=== PATIENT | female | born 1995 | race African-American/Black ===

== ENCOUNTER 2017-06-22 07:39 | Emergency (ER) | payer MEDICAID ==
[~2017-06-22] VITALS: Ht 172.7 cm; Wt 145.1 kg
--- NOTE | 2017-06-22 08:00 | NUR ---
A/OX4, C/O SHOULDER PAIN X THURSDAY, AFTER AN . NAD VSS RR EVEN AND UNLABORED. SEEN AND EVALUATED BY DR MAE
[2017-06-22 08:17] LABS: BASOPHILS % (AUTO) 0.4 % (0.0-2.0); EOSINOPHILS # (AUTO) 0.1 /CMM (0.0-0.7); EOSINOPHILS % (AUTO) 0.8 % (0.0-6.0); HEMATOCRIT 38 % (33-45); HEMOGLOBIN 11.8 g/dL (11.5-14.8); LYMPHOCYTES # (AUTO) 2.1 /CMM (0.8-4.8); LYMPHOCYTES % (AUTO) 26.6 % (20.0-44.0); MEAN CORPUSCULAR HEMOGLOBIN 24 PG (26.0-33.0); MEAN CORPUSCULAR HGB CONC 31 g/dl (31.0-36.0); MEAN CORPUSCULAR VOLUME 76 fL (82-100); MONOCYTES # (AUTO) 0.6 /CMM (0.1-1.30); MONOCYTES % (AUTO) 8.1 % (2.0-12.0); NEUTROPHILS % (AUTO) 64.1 % (43.0-81.0); PLATELET COUNT (AUTO) 345 /CMM (150-450); RDW COEFFICIENT OF VARIATION 17.8 (11.5-15.0); RED BLOOD CELL COUNT(AUTO) 5.02 MIL/uL (4.0-5.2); WHITE BLOOD COUNT (AUTO) 7.8 K/uL (4.3-11.0)
[2017-06-22 08:19] LABS: APPEARANCE,URINE SL CLOUDY (CLEAR); BILIRUBIN,URINE 1+ (NEGATIVE); BLOOD, URINE NEGATIVE Ery/uL (NEGATIVE); COLOR,URINE DARK YELLO (YELLOW); KETONES,URINE TRACE (NEGATIVE); LEUKOCYTE ESTERASE ,URINE TRACE (NEGATIVE); NITRITE, URINE NEGATIVE (NEGATIVE); PROTEIN,URINE TRACE mg/dl (NEGATIVE); UGLUCOSE NEGATIVE (NEGATIVE); UROBILINOGEN,URINE 0.2 EU/dL (0.2)
[2017-06-22 08:56] LABS: BACTERIA,URINE Rare /HPF (None Seen); RBC,URINE 0-2 /HPF (0-2); SQUAMOUS EPITHELIAL CELL,UR Few /HPF (None Seen)
[2017-06-22 09:55] VITALS: BP 131/78
--- NOTE | 2017-06-22 09:55 | NUR ---
Patient discharged to home in stable condition. Written and verbal after care instructions given. Patient verbalizes understanding of instruction.
== END 2017-06-22 09:56 | disposition home or self-care (01) ==
LOC: ER 07:44
DX: O03.88 Urinary tract infection following complete or unspecified spontaneous abortion (principal)
CPT/HCPCS: 36415; 76856-TC; 81000-TC; 84702-TC; 85025-TC; A4606; Z7610

== ENCOUNTER 2018-02-08 09:54 | Inpatient (IN) | payer MEDICAID ==
[~2018-02-08] VITALS: Ht 172.7 cm; Wt 165.6 kg
--- NOTE | 2018-02-08 10:01 | NUR ---
PT AMBULATORY TO ER BED 01 C/O R INNER THIGH PAIN [place] AND THINKS SHE WAS BITTEN BY SOMETHING. PT C/O 03/08 PAIN. GOWNED AND PLACED ON MONITOR. AWAITING MD GRANDE.
--- NOTE | 2018-02-08 10:03 | NUR ---
DR MAE AT BEDSIDE FOR EVAL.
--- NOTE | 2018-02-08 10:20 | NUR ---
IV LINE STARTED. UNABLE TO COLLECT BLOOD SPECIMEN. IVHL FLUSHES. NO SIGNS OF INFILTRATION. PROPERTY INSPECTOR AT BEDSIDE FOR BLOOD DRAW.
--- NOTE | 2018-02-08 10:25 | NUR ---
LACE PAPER MACHINE OPERATOR AT BEDSIDE FOR BLOOD DRAW.
[2018-02-08] MEDS ORDERED: VANCOMYCIN 1 GM in IV D5W 250 ML IV ONE (10:30)
[2018-02-08 11:03] LABS: BASOPHILS % (AUTO) 0.3 % (0.0-2.0); EOSINOPHILS % (AUTO) 0.6 % (0.0-6.0); HEMATOCRIT 35 % (33-45); HEMOGLOBIN 11.2 g/dL (11.5-14.8); LYMPHOCYTES # (AUTO) 1.3 /CMM (0.8-4.8); LYMPHOCYTES % (AUTO) 8.9 % (20.0-44.0); MEAN CORPUSCULAR HEMOGLOBIN 24 PG (26.0-33.0); MEAN CORPUSCULAR HGB CONC 32 g/dl (31.0-36.0); MEAN CORPUSCULAR VOLUME 75 fL (82-100); MONOCYTES # (AUTO) 0.9 /CMM (0.1-1.30); NEUTROPHILS # (AUTO) 12.8 /CMM (1.8-8.9); NEUTROPHILS % (AUTO) 84.2 % (43.0-81.0); PLATELET COUNT (AUTO) 347 /CMM (150-450); RDW COEFFICIENT OF VARIATION 15.6 (11.5-15.0); RED BLOOD CELL COUNT(AUTO) 4.67 MIL/uL (4.0-5.2); WHITE BLOOD COUNT (AUTO) 15.1 K/uL (4.3-11.0)
[2018-02-08 11:10] LABS: BILIRUBIN,URINE SMALL (NEGATIVE); BLOOD, URINE Trace-intact Ery/uL (NEGATIVE); COLOR,URINE Yellow (YELLOW); KETONES,URINE Trace (NEGATIVE); LEUKOCYTE ESTERASE ,URINE Negative (NEGATIVE); NITRITE, URINE Positive (NEGATIVE); PH,URINE 8.5 (5.0-8.0); PROTEIN,URINE 100 mg/dl (NEGATIVE); UGLUCOSE Negative (NEGATIVE)
[2018-02-08 11:11] LABS: APPEARANCE,URINE SLIGHTLY HAZY (CLEAR)
[2018-02-08 11:15] LABS: CALCIUM, SERUM 9.1 mg/dL (8.5-10.1); CARBON DIOXIDE 31 mmol/L (21-32); CHLORIDE 102 mmol/L (98-107); CREATININE 0.6 mg/dL (0.6-1.3); GLUCOSE 113 mg/dL (74-106); POTASSIUM 3.8 mmol/L (3.5-5.1); SODIUM SERUM 138 mmol/L (136-145); UREA NITROGEN, BLOOD 14 mg/dL (7-18)
[2018-02-08 11:16] LABS: INR 1.12 (0.85-1.15)
[2018-02-08 11:17] LABS: BACTERIA,URINE Moderate /HPF (None Seen); SQUAMOUS EPITHELIAL CELL,UR Many /HPF (None Seen)
[2018-02-08 11:24] LABS: ALANINE AMINOTRANSFERASE 19 U/L (12-78); ALBUMIN 3.1 g/dL (3.4-5.0); ALKALINE PHOSPHATASE 103 U/L (46-116); ASPARTATE AMINOTRANSFERASE 14 U/L (15-37); BILIRUBIN,DIRECT 0.3 mg/dL (0.0-0.2); BILIRUBIN,TOTAL 0.8 mg/dL (0.2-1.0); TOTAL PROTEIN, SERUM 7.6 g/dL (6.4-8.2)
[2018-02-08 11:28] LABS: TROPONIN I < 0.017 ng/mL (0.00-0.056)
[2018-02-08 11:29] LABS: BAND % (MANUAL) 4 % (0.0-5.0); LYMPHOCYTES % (MANUAL) 12 % (16-48); MONOCYTES % (MANUAL) 6 % (0-11.0); NEUTROPHILS % (MANUAL) 78 (42-76)
[2018-02-08] MEDS ORDERED: IOHEXOL-350 100 ML VIAL IV ONE (11:38)
[2018-02-08] MEDS ORDERED: CT SWABBABLE VALVE TRANS SET 1 EA INFUS.SET MC ONE (11:39)
[2018-02-08] MEDS ORDERED: IV NS 0.9% 250 ML IV ONE (11:39)
--- NOTE | 2018-02-08 11:50 | NUR ---
PT TO RADIOLOGY FOR RLE CT SCAN VIA [facility].
--- NOTE | 2018-02-08 13:12 | NUR ---
CALLED NURSING ADMINISTRATIVE ASST FOR BED
--- NOTE | 2018-02-08 13:19 | NUR ---
PT IS ASSIGNED TO MED SURG RM#: [id number], DX: CELLULITIS, ACCEPTING MD: DR HOWELL
--- NOTE | 2018-02-08 13:34 | NUR ---
REPORT GIVEN TO GILSON MYRICK. PT AWAITING TRANSFER TO FLOOR.
--- NOTE | 2018-02-08 13:35 | NUR ---
MS1/RN REPORT FROM ER REPORT RECEIVED LINDENLeela HOROWITZ FOR PT TO BE ADMITTED FOR CELLULITIS OF THE RIGHT THIGH UNDER THE CARE OF DR. HOWELL. AWAITING FOR PT'S ARRIVAL.
[2018-02-08] MEDS ORDERED: MAG HYDROX/AL HYDROX/SIMETH 30 ML UDC PO PRN (14:30)
[2018-02-08] MEDS ORDERED: MAGNESIUM HYDROXIDE 30 ML UDC PO PRN (14:30)
[2018-02-08] MEDS ORDERED: HYDROCODONE/APAP 5/325MG 1 EACH TABLET PO PRN (14:30)
[2018-02-08] MEDS ORDERED: ZOLPIDEM TARTRATE 5 MG TABLET PO PRN (14:30)
[2018-02-08] MEDS ORDERED: Z GUARD REMEDY 2 OZ OINT TP PRN (14:30)
[2018-02-08] MEDS ORDERED: ONDANSETRON HCL/PF 4 MG/2 ML VIAL IVP PRN (14:30)
--- NOTE | 2018-02-08 14:40 | NUR ---
MS1/RN ADMITTED TO VT1 - ROOM 109 PT ARRIVED VIA GURNEY ACCOMPANIED BY TRANSPORT CAROLYNN FROM ER. PT AMBULATED WITH A STEADY GET TO HOSPITAL BED. PT A/OX 4, DENIES ANY PAIN AT THIS TIME BUT HAS DISCOMFORT WHEN WALKING RELATED TO THE APPARENT INSECT BITE ON THE RIGHT THIGH, NOTED WARM AND FIRM TO THE TOUCH, ACCORDING TO PT IS PAINFUL WHEN TOUCHED. IV SITE FLUSHED PATENT WITH NO S/S INFECTION, NO EDEMA NOTED. ADMISSION PROTOCOL TO BE INITIATED, AWAITING FOR ADMITTING ORDERS. PT ORIENTED TO HER SURROUNDINGS. CL WITHIN REACHED AND SAFETY MAINTAINED.
[2018-02-08] MEDS ORDERED: FEE PK DOSING 1 MIN EA MC ONE (14:45)
[2018-02-08] MEDS ORDERED: IV NS 0.9% 250 ML IV PRN (15:00)
[2018-02-08 16:00] VITALS: BP 107/55
[2018-02-08] MEDS: VANCOMYCIN 1 GM in IV D5W 250 ML IV SCH ×2 (16:56→22:33)
[2018-02-08] MEDS: ACETAMINOPHEN 325 MG TABLET PO PRN (17:00)
[2018-02-08] MEDS: CEFTRIAXONE 1 G in IV D5W 50 ML IV SCH (18:20)
--- NOTE | 2018-02-08 19:30 | NUR ---
MS1/RN AM SHIFT END NOTES ALL NEEDS MET, PT NOTED WITH ELEVATED TEMP DURING THE SHIFT, COOLING MEASURES GIVEN, LAST TEMP CHECK 100. PT HAD RECEIVED ANTIBIOTIC MEDICATIONS. PT ENDORSED TO PM NURSE TRO CONTINUE CARE. IV SITE INTACT AND PATENT, WITH NO S/S OF INFECTION. CL WITHIN REACHED AND SAFETY MAINTAINED.
[2018-02-08 20:00] VITALS: BP 105/50
--- NOTE | 2018-02-08 20:00 | NUR ---
MS RN NOTE PT IN BED AWAKE. A/O X 4, NO SOB NO DISTRESS OR DISCOMFORT NOTED. PT IS CONCERNED WITH LOW BP 105/50. REMINDED PT THAT SHE TOOK PAIN MED EARLIER. WILL CONTINUE TO MONITOR HER. SL RT HAND #20 INTACT AND PATENT. SIDE RAILS UP X 2 AND CALL LIGHT WITHIN REACH.
--- NOTE | 2018-02-08 20:05 | NUR ---
MS RN NOTE RT THIGH WITH CELLULITIS, SCANT DRAINAGE NOTED. MEPILEX ON. SKIN IS SLIGHTLY HARD AROUND THE CELLULITIS AREA. PAINFUL TO TOUCH. OTHERWISE PT IS COMFORTABLE.
[2018-02-09] MEDS: ACETAMINOPHEN 325 MG TABLET PO PRN ×2 (03:59→15:47)
[2018-02-09 04:00] VITALS: BP 111/51
--- NOTE | 2018-02-09 06:00 | NUR ---
MS 1 RN NOTE CHANGE NURSE AND NURSE VALDEZ GAVE BED BATH TO THE PT, PER PT'S REQUEST ONLY FEMALE STAFF TO GIVE HER BATH.
[2018-02-09] MEDS: VANCOMYCIN 1 GM in IV D5W 250 ML IV SCH ×2 (06:14→15:44)
[2018-02-09 06:25] LABS: BASOPHILS % (AUTO) 0.2 % (0.0-2.0); EOSINOPHILS % (AUTO) 1.1 % (0.0-6.0); HEMATOCRIT 34 % (33-45); HEMOGLOBIN 10.9 g/dL (11.5-14.8); LYMPHOCYTES # (AUTO) 0.9 /CMM (0.8-4.8); MEAN CORPUSCULAR HEMOGLOBIN 25 PG (26.0-33.0); MEAN CORPUSCULAR HGB CONC 32 g/dl (31.0-36.0); MEAN CORPUSCULAR VOLUME 77 fL (82-100); MONOCYTES # (AUTO) 0.5 /CMM (0.1-1.30); MONOCYTES % (AUTO) 4.3 % (2.0-12.0); NEUTROPHILS # (AUTO) 9.5 /CMM (1.8-8.9); NEUTROPHILS % (AUTO) 86.4 % (43.0-81.0); PLATELET COUNT (AUTO) 279 /CMM (150-450); RDW COEFFICIENT OF VARIATION 16.9 (11.5-15.0); RED BLOOD CELL COUNT(AUTO) 4.36 MIL/uL (4.0-5.2)
[2018-02-09 06:44] LABS: ALBUMIN 2.4 g/dL (3.4-5.0); BILIRUBIN,TOTAL 1.3 mg/dL (0.2-1.0); CALCIUM, SERUM 8.2 mg/dL (8.5-10.1); CREATININE 0.7 mg/dL (0.6-1.3); MAGNESIUM 1.6 mg/dL (1.8-2.4); PHOSPHORUS 3.2 mg/dL (2.5-4.9); POTASSIUM 3.4 mmol/L (3.5-5.1); TOTAL PROTEIN, SERUM 6.8 g/dL (6.4-8.2)
--- NOTE | 2018-02-09 06:44 | NUR ---
MS 1 RN NOTE PT IN BED AWAKE. NO DISTRESS OR DISCOMFORT NOTED. DENIES PAIN. VANCO INFUSING ORDERED NO S/S OF INFILTRATION NOTED. ALL NEEDS ATTENDED. WILL ENDORSE TO DAY SHIFT NURSE FOR CONTINUE TO CARE.
[2018-02-09 08:00] VITALS: BP 110/60
--- NOTE | 2018-02-09 08:00 | NUR ---
MS1/RN AM SHIFT INITIAL NOTES RECEIVED PT ASLEEP IN BED, PT A/O X 4, COMPLAINT OF DISCOMFORT ON RIGHT THIGH WOUND, NOTED WITH MODERATE SEROSANGUINEOUS DISCHARGE, DRESSING INTACT, IV SITE ON TKO, PATENT WITH NO S/S OF INFECTION. UPDATED PT LATEST LAB RESULTS SHE REQUESTED. NO ACUTE CHANGE ON CONDITION. CL WITHIN REACHED AND SAFETY MAINTAINED. ON GOING MONITORING.
[2018-02-09] MEDS ORDERED: POTASSIUM CHLORIDE 20 MEQ TAB.PRT.SR PO SCH (09:30)
[2018-02-09] MEDS: Magnesium 1GM/D5W 100ML PREMIX 100 ML IV SCH ×2 (09:47→11:17)
--- NOTE | 2018-02-09 11:30 | NUR ---
MS1/RN ROUNDS - DR. TOTH UPDATED PT'S CONDITION. PT SEEN & EXAMINED BY DR. TOTH, WOUND EXPRESSED, SPECIMEN ORDERED FOR CULTURE. MONITORING.
[2018-02-09 16:00] VITALS: BP 112/42
--- NOTE | 2018-02-09 17:00 | NUR ---
MS1/RN CHANGE IN CONDITION PT VERBALIZED FEELING OF INCREASED HEART RATE. ASSESSED, HR 134, TEMP 102.4 (PT HAD BEEN GIVEN TYLENOL EARLIER AND O2 SAT ON ROOM AIR 97%, RESPIRATIONS EVEN & UNLABORED. NOTIFIED DR. SANCHEZ OF FINDINGS ABOVE WITH ORDERS GIVEN TO DRAW BLOOD CULTURE X 2, LACTIC ACID AND PROCALCITONIN, NOTED AND CARRIED. ON GOING MONITORING. Addendum: 02/09/18 at 1818 by ETHAN LEIGH RN ADDENDUM: TEMP CHECK 102.6, PT REFUSED COOLING MEASURES LIKE ICE PACKS. CHARGE NURSE MADE AWARE. MONITORING.
[2018-02-09] MEDS: LACTOBACILLUS RHAMNOSUS GG 1 EACH CAP.SPRINK PO SCH (17:06)
[2018-02-09] MEDS: CEFTRIAXONE 1 G in IV D5W 50 ML IV SCH (17:06)
--- NOTE | 2018-02-09 18:24 | NUR ---
MS1/RN CONDITION UPDATE CALLED DR. TOTH, RELAYED LATEST TEMP OF 102.6, PT REFUSED COOLING MEASURE, PT AGREED TO HAVE A FAN. DR. TOTH UPGRADED PT'S ACUITY TO TELEMETRY. LAB RESULTS STILL PENDING.
--- NOTE | 2018-02-09 18:42 | NUR ---
patient lives at home locally with family. She is ambulatory and independent with adl's. She sees her pcp at the local [facility]. Current dc plan is to return home. Addendum: 02/09/18 at 1842 by ОЛЕГ WALSH RN Amended: Links added.
--- NOTE | 2018-02-09 19:14 | NUR ---
TELE1/RN AM SHIFT END NOTES ALL NEEDS MET. STILL AWAITING FOR RESULT OF STAT LABS ORDERED. PT ENDORSED TO PM NURSE TO CONTINUE CARE. ALSO ENDORSED TO RELAY THE RESULTS OF STAT LAB TO DR. TOTH ONCE AVAILABLE. CL WITHIN REACHED AND SAFETY MAINTAINED.
--- NOTE | 2018-02-09 19:31 | NUR ---
TELE 1 RN NOTE PT SITTING UP IN THE CHAIR IN HER ROOM. A/O X 3, NO SOB, NO DISTRESS OR DISCOMFORT NOTED. DENIES PAIN AT THIS TIME. FEVER IS COMING DOWN. NS TKO AT RT HAND # 20 G, INTACT AND PATENT. ON TELE MONITOR ST 126. PT KEPT ON SAYING "I THINK I HAVE SEPSIS AND NO DOCTOR CAME TO CHECK ON HER". SIDE RAILS UP X 2 AND CALL LIGHT WITHIN REACH. CONTINUE TO MONITOR HER.
[2018-02-09 20:00] VITALS: BP 114/63
[2018-02-09] MEDS: VANCOMYCIN 1.25 GM in IV NS 0.9% 500 ML IV SCH (22:35)
[2018-02-10] VITALS: BP 100/55
[2018-02-10] MEDS: ACETAMINOPHEN 325 MG TABLET PO PRN ×2 (03:18→13:38)
--- NOTE | 2018-02-10 03:18 | NUR ---
TELE 1 RN NOTE PT IS RUNNING LOW GRADE FEVER 100.0, TYLENOL 650 MG PO GIVEN.
[2018-02-10 04:00] VITALS: BP 101/53
[2018-02-10] MEDS: VANCOMYCIN 1.25 GM in IV NS 0.9% 500 ML IV SCH ×2 (06:13→15:00)
[2018-02-10 06:34] LABS: BASOPHILS % (AUTO) 0.1 % (0.0-2.0); EOSINOPHILS % (AUTO) 2.2 % (0.0-6.0); HEMATOCRIT 32 % (33-45); HEMOGLOBIN 10.3 g/dL (11.5-14.8); LYMPHOCYTES # (AUTO) 1.4 /CMM (0.8-4.8); LYMPHOCYTES % (AUTO) 9.6 % (20.0-44.0); MEAN CORPUSCULAR HEMOGLOBIN 25 PG (26.0-33.0); MEAN CORPUSCULAR HGB CONC 32 g/dl (31.0-36.0); MEAN CORPUSCULAR VOLUME 78 fL (82-100); MONOCYTES # (AUTO) 0.6 /CMM (0.1-1.30); MONOCYTES % (AUTO) 4.3 % (2.0-12.0); NEUTROPHILS # (AUTO) 11.8 /CMM (1.8-8.9); NEUTROPHILS % (AUTO) 83.8 % (43.0-81.0); PLATELET COUNT (AUTO) 303 /CMM (150-450); RDW COEFFICIENT OF VARIATION 16.9 (11.5-15.0); RED BLOOD CELL COUNT(AUTO) 4.11 MIL/uL (4.0-5.2); WHITE BLOOD COUNT (AUTO) 14.1 K/uL (4.3-11.0)
--- NOTE | 2018-02-10 06:45 | NUR ---
TELE 1 RN NOTE PT IN BED AWAKE. NO DISTRESS OR DISCOMFORT NOTED. DENIES PAIN. VANCO INFUSING WELL, NO S/S OF INFILTRATION NOTED. ALL NEEDS ATTENDED. SIDE RAILS UP X 3 AND CALL LIGHT WITHIN REACH. WILL ENDORSE TO DAY SHIFT NURSE FOR CONTINUE TO CARE.
--- NOTE | 2018-02-10 06:46 | NUR ---
TELE 1 RN NOTE ON TELE MONITOR S T HR 110.
[2018-02-10 06:58] VITALS: BP 101/53
[2018-02-10 07:02] LABS: CALCIUM, SERUM 8.1 mg/dL (8.5-10.1); CREATININE 0.7 mg/dL (0.6-1.3); POTASSIUM 3.2 mmol/L (3.5-5.1)
--- NOTE | 2018-02-10 07:10 | NUR ---
TELE/RN NOTES RECEIVED PT IN BED, ALERT AND VERBALLY RESPONSIVE, AFEBRILE, TOLERATING ROOM AIR WELL, NO C/O SOB. DENIES PAIN AT THIS TIME. ST HR 120 ON TELE MONITOR. WITH ONGOING VANCO IV ATB INFUSING WELL ON RHAND. NO SIGNS OF INFECTION ON IV SITE. HOB ELEVATED. SAFETY MEASURES IN PLACED. CALL LIGHT WITHIN REACH. WILL CONT TO MONITOR
[2018-02-10 08:00] VITALS: BP 122/74
--- NOTE | 2018-02-10 08:06 | NUR ---
WOUND CARE CONSULT: PT PRESENTS WITH INDURATED AREA TO RT THIGH WITH OPEN AREA, PRESENT ON ADMISSION. NO DRAINAGE NOTE AT THIS TIME. RECOMMEND SURGICAL CONSULT. PT INDEPENDENT WITH BED MOBILITY AND IS CONTINENT. WILL SEE PRN. DEFER TO SURGICAL TEAM FOR WOUND TREATMENT PLAN. CURRENT AGUSTINA SCORE IS 21. Addendum: 02/10/18 at 0808 by MIKE RAY WNDNU Amended: Links added.
[2018-02-10] MEDS: LACTOBACILLUS RHAMNOSUS GG 1 EACH CAP.SPRINK PO SCH ×2 (08:46→16:24)
--- NOTE | 2018-02-10 10:30 | NUR ---
RN NOTES SEEN BY RACHAEL REYNA, PER STAFF RADIATION THERAPIST PT IS FOR I&D UNDER ANESTHESIA, ALL QUESTIONS AND CONCERNS WERE ANSWERED BY RACHAEL ALVARADO PER PT, "I'LL THINK ABOUT IT." WILL FOLLOW UP
[2018-02-10] MEDS: POTASSIUM CHLORIDE 20 MEQ TAB.PRT.SR PO SCH ×2 (10:47→11:36)
--- NOTE | 2018-02-10 11:20 | NUR ---
RN NOTES SEEN AND EXAMINED BY DR TOTH, ALL QUESTIONS AND CONCERNS WERE ANSWERED BY
--- NOTE | 2018-02-10 14:25 | NUR ---
RN NOTES CALLED LAB FOR VANCO IV DUE FOR 1500, PER PHARMACIST NEED TO WAIT FOR VANCO LEVEL, WILL FOLLOW UP WITH LAB
--- NOTE | 2018-02-10 14:45 | NUR ---
RN NOTES PENS AND PENCILS REPAIRER AT BEDSIDE FOR VANCO LEVEL
[2018-02-10] MEDS: CEFTRIAXONE 1 G in IV D5W 50 ML IV SCH (15:48)
[2018-02-10 16:00] VITALS: BP 119/59
--- NOTE | 2018-02-10 16:15 | NUR ---
RN NOTES SPOKE WITH AERONAUTICAL TEST ENGINEER,- VANCO LEVEL WILL TAKE AWHILE DUE TO MACHINE ISSUE CALLED LAB AND SPOKE WITH DELANO, PER PHARMACIST, "WE STILL NEED TO WAIT FOR THE VANCO LEVEL AND WE'LL JUST ADJUST."
--- NOTE | 2018-02-10 16:36 | NUR ---
RN NOTES PT TEMP 99.9, FAN ON. STILL REFUSED COOLING MEASURES, WILL CONT TO MONITOR
[2018-02-10] MEDS ORDERED: VANCOMYCIN 1.5 GM in IV D5W 500 ML IV ONE (18:30)
--- NOTE | 2018-02-10 19:28 | NUR ---
RN NOTES PT IN STABLE CONDITION. NO ACUTE DISTRESS NOTED THROUGHOUT SHIFT. SAFETY MEASURES OBSERVED AT ALL TIMES. ALL NEEDS ANTICIPATED. ENDORSED TO PM SHIFT NURSE FOR PATRICIA
[2018-02-10 20:00] VITALS: BP 113/70
--- NOTE | 2018-02-10 20:00 | NUR ---
TELE 1 RN NOTE PT IN BED AWAKE. A/O X 3, NO SOB, NO DISTRESS OR DISCOMFORT NOTED. DENIES PAIN. RT HAND #20 G S/L INTACT AND PATENT. ON TELE MONITOR ST HR 126. SIDE RAILS UP X 2 AND CALL LIGHT WITHIN REACH. VSS. CONTINUE TO MONITOR HER.
[2018-02-11] VITALS: BP 122/70
[2018-02-11] MEDS: VANCOMYCIN 1.5 GM in IV D5W 500 ML IV SCH ×3 (02:25→17:12)
[2018-02-11 05:00] VITALS: BP 127/85
--- NOTE | 2018-02-11 06:41 | NUR ---
TELE 1 RN NOTE PT IN BED AWAKE, WENT TO BATHROOM, NO DISTRESS OR DISCOMFORT NOTED. DENIES PAIN. SL IN RT HAND #20 G INTACT AND PATENT. ON TELE ST HR 130. ALL NEEDS ATTENDED. SIDE RAILS UP X 2 AND CALL LIGHT WITHIN REACH. WILL ENDORSE TO DAY SHIFT NURSE FOR CONTINUE TO CARE.
--- NOTE | 2018-02-11 06:58 | NUR ---
TELE 1 RN NOTE PT NOTED O2 SAT 86% ON RA, O2 4L APPLIED VIA N/C O2 SAT 95%. PT DON'T WANT TO GIVE CONSENT YET FOR DEBRIDMENT PROCEDURE. STATES "I WILL WAIT UNTIL I AM SURE TO DO THIS".
--- NOTE | 2018-02-11 07:15 | NUR ---
VAT HOUSE LABORER INITIAL NOTES RECEIVED REPORT AND PATEINT FROM PM NURSE, PATIENT RESTING IN BED WITH NO ACUTE CHANGES NOTED, ALL SAFETY MEASURES INITIATED, ON TELE MONITOR SINUS TACH 108 HEART RATE, A&O X4 FRENCH SPEAKING, ON 4LITERS NASAL CANULA SAT ABOVE 90%, NPO AT THIS TIME PER I&D SURGERY FOR THIGH POSSIBLY WAITING FOR PATIENT TO CONSENT WITH MD AT BEDSIDE, RT HAND 20G IV SITE SALINE LOCKED, INTACT AND PATENT NO INFILTRATION NOTED., PT STABLE AND WILL CONTINUE TO MONITOR.
[2018-02-11 07:33] LABS: BASOPHILS % (AUTO) 0.2 % (0.0-2.0); HEMATOCRIT 35 % (33-45); LYMPHOCYTES # (AUTO) 1.6 /CMM (0.8-4.8); LYMPHOCYTES % (AUTO) 15.5 % (20.0-44.0); MEAN CORPUSCULAR HEMOGLOBIN 24 PG (26.0-33.0); MEAN CORPUSCULAR HGB CONC 32 g/dl (31.0-36.0); MEAN CORPUSCULAR VOLUME 77 fL (82-100); MONOCYTES # (AUTO) 0.7 /CMM (0.1-1.30); MONOCYTES % (AUTO) 6.2 % (2.0-12.0); NEUTROPHILS # (AUTO) 7.9 /CMM (1.8-8.9); NEUTROPHILS % (AUTO) 75.1 % (43.0-81.0); PLATELET COUNT (AUTO) 385 /CMM (150-450); RDW COEFFICIENT OF VARIATION 17.1 (11.5-15.0); RED BLOOD CELL COUNT(AUTO) 4.52 MIL/uL (4.0-5.2); WHITE BLOOD COUNT (AUTO) 10.6 K/uL (4.3-11.0)
[2018-02-11 07:43] LABS: CALCIUM, SERUM 8.6 mg/dL (8.5-10.1); CREATININE 0.7 mg/dL (0.6-1.3); POTASSIUM 3.5 mmol/L (3.5-5.1)
[2018-02-11 08:00] VITALS: BP 124/84
[2018-02-11] MEDS: LACTOBACILLUS RHAMNOSUS GG 1 EACH CAP.SPRINK PO SCH ×2 (08:09→16:14)
--- NOTE | 2018-02-11 12:12 | NUR ---
SPOT WELDER LINE NOTES PATIENT LEAVING FOR I&D WITH DR MUNIZ, CONSENTS SIGNED AND COMPLETED, VS STABLE, PATIENT STABLE WITH NO ACUTE DISTRESS NOTED, IV SITE INTACT AND PATENT, WILL AWAIT FOR RETURN BACK AND ORDERS FROM MD.
--- NOTE | 2018-02-11 12:58 | NUR ---
ANIMAL PHYSIOLOGY TEACHER NOTES PATIENT IN OPERATING ROOM CALLED AND SPOKE WITH PAU RN AND PT OUT OF SURGERY, STABLE WITH NO PAIN NOTED OR DISTRESS, WILL PROCEED WITH MD ORDERS FOR WOUND TX.
--- NOTE | 2018-02-11 13:15 | NUR ---
JOURNEYMAN MOLDER NOTES PATIENT RETURNED BACK FROM SURGERY, VS T 98.2, RESP 18, BP 99/45, SAT 96% NO SOB OR ACUTE DISTRESS, HR 96, NO PAIN STATED BY PATIENT, DRESSING INTACT WITH NO DRAINAGE NOTED, WILL CONTINUE TO MONITOR.
[2018-02-11 16:00] VITALS: BP 111/67
[2018-02-11] MEDS: CEFTRIAXONE 1 G in IV D5W 50 ML IV SCH (16:14)
--- NOTE | 2018-02-11 18:44 | NUR ---
DISTRICT COURT ADMINISTRATOR NOTES PT RESTING IN BED, WILL CONTINUE TO MONITOR, ALL DUE MEDS GIVEN AND ALL NEEDS MET, IV SITE INFILTRATED WILL NEED NEW IV, NEED TO INSERT NEW IV, WILL ENDORSE TO PM NURSE FOR CONTINUITY OF CARE, PT STABLE AT THIS TIME, ON TELE MONITOR MD ORDERED, BED BATH PROVIDED,WILL CONTINUE CARE.
[2018-02-11 20:00] VITALS: BP 133/61
[2018-02-12] VITALS: BP 128/80
[2018-02-12] MEDS: VANCOMYCIN 1.5 GM in IV D5W 500 ML IV SCH ×3 (01:38→17:36)
[2018-02-12 04:00] VITALS: BP 117/70
--- NOTE | 2018-02-12 07:27 | NUR ---
SERVICE EMPLOYEE OPENING NOTES RECEIVED PATIENT ASLEEP IN BED, EASILY AWAKENS. ON 02 VIA N/C @ 3LPM, BREATHING EVEN AND UNLABORED WITH NO SIGNS OF RESPIRATORY DISTRESS NOTED. ON TELE-MONITORING WITH CURRENT READING OF SR WITH HR OF 82, NO CARDIAC DISTRESS NOTED. IV ACCESS ON LEFT HAND G #22 INTACT AND PATENT. ALL SAFETY MEASURES IN PLACE. BED LOW AND LOCKED POSITION WITH SIDE-RAILS UP X2. CALL LIGHT IN REACH. WILL CONTINUE TO MONITOR PATIENT ACCORDINGLY.
[2018-02-12 08:00] VITALS: BP 105/78
[2018-02-12] MEDS: LACTOBACILLUS RHAMNOSUS GG 1 EACH CAP.SPRINK PO SCH ×2 (08:37→16:50)
--- NOTE | 2018-02-12 09:28 | NUR ---
RN NOTES IV ACCESS O LEFT HAND DISLODGED, NEW IV LINE INSERTED TO DELTA G#22, DATED AND SECURED WITH TAPE. WILL CONTINUE TO MONITOR.
[2018-02-12 10:01] LABS: BASOPHILS % (AUTO) 0.1 % (0.0-2.0); EOSINOPHILS % (AUTO) 2.7 % (0.0-6.0); HEMATOCRIT 35 % (33-45); HEMOGLOBIN 10.9 g/dL (11.5-14.8); LYMPHOCYTES # (AUTO) 2.1 /CMM (0.8-4.8); LYMPHOCYTES % (AUTO) 18.6 % (20.0-44.0); MEAN CORPUSCULAR HEMOGLOBIN 24 PG (26.0-33.0); MEAN CORPUSCULAR HGB CONC 31 g/dl (31.0-36.0); MEAN CORPUSCULAR VOLUME 77 fL (82-100); MONOCYTES # (AUTO) 0.8 /CMM (0.1-1.30); MONOCYTES % (AUTO) 7.3 % (2.0-12.0); NEUTROPHILS # (AUTO) 7.9 /CMM (1.8-8.9); NEUTROPHILS % (AUTO) 71.3 % (43.0-81.0); PLATELET COUNT (AUTO) 404 /CMM (150-450); RED BLOOD CELL COUNT(AUTO) 4.55 MIL/uL (4.0-5.2); WHITE BLOOD COUNT (AUTO) 11.1 K/uL (4.3-11.0)
[2018-02-12 10:13] LABS: CALCIUM, SERUM 8.9 mg/dL (8.5-10.1); CREATININE 0.8 mg/dL (0.6-1.3)
[2018-02-12] MEDS ORDERED: CLIN300C11 PO (10:47)
--- NOTE | 2018-02-12 12:21 | NUR ---
RN NOTES DR MUNIZ CAME AND SHOWED PATIENT HOW TO DO WOUND DRESSING ON HER RIGHT THIGH AND ABLE TO VERBALIZED UNDERSTANDING.
[2018-02-12] MEDS: CEFTRIAXONE 1 G in IV D5W 50 ML IV SCH (15:48)
[2018-02-12 16:00] VITALS: BP 119/67
--- NOTE | 2018-02-12 16:30 | NUR ---
RN NOTES PATIENT ASKED ME TO TALKED TO HIS FRIEND MIGUEL. SPOKE TO MIGUEL AND SAID THAT HE WILL COME TO PICK- UP PATIENT TO TAKE HER HOME TONIGHT B/W 9:00-9:30 PM AFTER HIS WORK. CHARGE NURSE LUZ MADE AWARE. WILL ENDORSED TO AIRCRAFT MACHINIST NURSE
--- NOTE | 2018-02-12 18:38 | NUR ---
TATA RN CLOSING NOTES PATIENT AWAKE AND WATCHING TV IN BED. A/O X4. ABLE TO VERBALIZED NEED. ALL NEEDS AND CARE ATTENDED WELL. SHOWED PT AGAIN HOW TO CHANGED HER WOUND DRESSING ON RIGHT THIGH. ON 02 VIA N/C @ 3LPM, BREATHING EVEN AND UNLABORED WITH NO SIGNS OF RESPIRATORY DISTRESS NOTED. IV ACCESS ON FANTASMA G #22 INTACT AND PATENT, IV ABT VANCOMYCIN INFUSING AT THIS TIME, NO S/S OF INFILTRATION NOTED. ALL SAFETY MEASURES KEPT IN PLACE. HOB ELEVATED. BED LOW AND LOCKED POSITION WITH SIDE-RAILS UP X2. CALL LIGHT IN REACH. PT WILL BE DISCHARGE HOME MEET B/W 9:00-9:30 PM AND WILL BE PICK-UP BY HER FRIEND MIGUEL COMING FROM WORK. PT STATED HAT IF HIS FRIEND MIGUEL WILL NOT COME, THEN SHE WILL TAKE A TAXI HOME. WILL ENDORSE TO TAPE CUTTER NURSE.
--- NOTE | 2018-02-12 19:32 | NUR ---
RAMEZ MS INITIAL NOTE RECEIVED PT FOR DC TODAY, ALL DC INSTRUCTIONS GIVEN TWICE BY AM RN AND DURING ENDORSEMENT, RETURN DEMO GIVEN REGARDING MEDICATION PRESCRIPTION WELL TREATMENT. ALL NEEDS ATTENDED NO COMPLAINTS RAISED. ETA/ FREIND ACCORDING TO RAMEZ CARUSO BTN 2099 TO 0 AFTER WORK. IF NOT PT WILL CALL TAXI TO HOME IN [place], FUNDS AVAILABLE TO COVER EXPENSE. ALL PAPERWORK COMPLETE, AWAITING SIGNING.
--- NOTE | 2018-02-12 22:26 | NUR ---
PT LILLI W/ VOUCHER $23 PROVIDED, BY INPUT OUTPUT CLERK, PERSONAL BELONGING ACKNOWLEDGED ALL NEEDS MET, INSTRUCTION AND SAFETY GIVEN.
[2018-02-12 22:30] VITALS: BP 112/64
== END 2018-02-12 22:30 | disposition home or self-care (01) | DRG 720 ==
LOC: ER 09:55 → MEDSG1 13:26 → TELE1 02-09 19:47 → MEDSG1 02-12 08:26
PROVIDERS: ADMIT Internal Medicine; ATTEND Internal Medicine
PROC: 0JBL0ZZ Excision of Right Upper Leg Subcutaneous Tissue and Fascia, Open Approach (ICD-10-PCS; principal; 2018-02-11 12:00)
DX: A41.9 Sepsis, unspecified organism (principal); E44.0 Moderate protein-calorie malnutrition; Z68.43 Body mass index [BMI] 50.0-59.9, adult; E83.42 Hypomagnesemia; L03.115 Cellulitis of right lower limb; L02.415 Cutaneous abscess of right lower limb; E87.6 Hypokalemia; N39.0 Urinary tract infection, site not specified; E66.01 Morbid (severe) obesity due to excess calories; B95.62 Methicillin resistant Staphylococcus aureus infection as the cause of diseases classified elsewhere; B96.20 Unspecified Escherichia coli [E. coli] as the cause of diseases classified elsewhere
CPT/HCPCS: 36415; 71045-TC; 73701-TC; 80048-TC; 80053-TC; 80061-TC; 80076-TC; 80202-TC; 81000-TC; 82962-TC; 83605-TC; 83735-TC; 84100-TC; 84484-TC; 84703-TC; 85025-TC; 85730-TC; 87040-TC; 87070-TC; 87081-TC; 87086-TC; 87186-TC; A4606; A6253; A6402; A6403; J0696; J3370; J3475; J7040; J7050; J7060; Q9967; Z7610

== ENCOUNTER 2018-02-18 09:35 | Emergency (ER) | payer MEDICAID ==
[~2018-02-18] VITALS: Ht 162.6 cm; Wt 170.1 kg
[~2018-02-18 09:35] MED LIST: CLIN300C11 PO
[2018-02-18 09:42] VITALS: BP 139/74
--- NOTE | 2018-02-18 10:06 | NUR ---
You Quintero MD CALLED [phone]
--- NOTE | 2018-02-18 10:26 | NUR ---
You Quintero MD [phone] CALLED. CELL NUMBER IS [phone]
[2018-02-18 10:30] LABS: BASOPHILS % (AUTO) 0.1 % (0.0-2.0); HEMATOCRIT 33 % (33-45); HEMOGLOBIN 10.5 g/dL (11.5-14.8); LYMPHOCYTES # (AUTO) 1.8 /CMM (0.8-4.8); LYMPHOCYTES % (AUTO) 19.2 % (20.0-44.0); MEAN CORPUSCULAR HEMOGLOBIN 25 PG (26.0-33.0); MEAN CORPUSCULAR HGB CONC 32 g/dl (31.0-36.0); MEAN CORPUSCULAR VOLUME 78 fL (82-100); MONOCYTES # (AUTO) 0.4 /CMM (0.1-1.30); MONOCYTES % (AUTO) 4.2 % (2.0-12.0); NEUTROPHILS # (AUTO) 6.9 /CMM (1.8-8.9); NEUTROPHILS % (AUTO) 74.5 % (43.0-81.0); PLATELET COUNT (AUTO) 482 /CMM (150-450); RDW COEFFICIENT OF VARIATION 17.4 (11.5-15.0); RED BLOOD CELL COUNT(AUTO) 4.28 MIL/uL (4.0-5.2); WHITE BLOOD COUNT (AUTO) 9.3 K/uL (4.3-11.0)
== END 2018-02-18 10:58 | disposition home or self-care (01) ==
LOC: ER 09:36
DX: Z48.00 Encounter for change or removal of nonsurgical wound dressing (principal)
CPT/HCPCS: 36415; 85025-TC; A4606; Z7610

== ENCOUNTER 2018-06-09 07:07 | Emergency (ER) | payer MEDICAID ==
[~2018-06-09] VITALS: Ht 172.7 cm; Wt 185.1 kg
[2018-06-09 07:18] VITALS: BP 152/87
== END 2018-06-09 07:57 | disposition home or self-care (01) ==
LOC: ER 07:09
DX: M79.602 Pain in left arm (principal); E66.01 Morbid (severe) obesity due to excess calories; Z98.890 Other specified postprocedural states; Z68.44 Body mass index [BMI] 60.0-69.9, adult
CPT/HCPCS: A4606; Z7610

== ENCOUNTER 2018-06-11 17:26 | Inpatient (IN) | payer MEDICAID ==
[~2018-06-11] VITALS: Ht 172.7 cm; Wt 181.9 kg
--- NOTE | 2018-06-11 17:30 | NUR ---
PATIENT BROUGHT SELF C/O FAST HEART BEAT, DENIES PAIN OR DISCOMFORT AT THIS TIME. WILL CONTINUE TO MONITOR.
[2018-06-11] MEDS ORDERED: IV NS 0.9% 500 ML BAG IV ONE (18:30)
[2018-06-11 18:38] LABS: BASOPHILS % (AUTO) 0.5 % (0.0-2.0); EOSINOPHILS % (AUTO) 1.2 % (0.0-6.0); HEMATOCRIT 37 % (33-45); HEMOGLOBIN 11.7 g/dL (11.5-14.8); LYMPHOCYTES # (AUTO) 2.1 /CMM (0.8-4.8); LYMPHOCYTES % (AUTO) 22.2 % (20.0-44.0); MEAN CORPUSCULAR HGB CONC 32 g/dl (31.0-36.0); MEAN CORPUSCULAR VOLUME 75 fL (82-100); MONOCYTES # (AUTO) 0.5 /CMM (0.1-1.30); MONOCYTES % (AUTO) 5.7 % (2.0-12.0); NEUTROPHILS # (AUTO) 6.6 /CMM (1.8-8.9); NEUTROPHILS % (AUTO) 70.4 % (43.0-81.0); PLATELET COUNT (AUTO) 353 /CMM (150-450); RED BLOOD CELL COUNT(AUTO) 4.95 MIL/uL (4.0-5.2); WHITE BLOOD COUNT (AUTO) 9.3 K/uL (4.3-11.0)
[2018-06-11 18:49] LABS: CALCIUM, SERUM 9.3 mg/dL (8.5-10.1); CARBON DIOXIDE 29 mmol/L (21-32); CHLORIDE 104 mmol/L (98-107); CREATININE 0.7 mg/dL (0.6-1.3); GLUCOSE 109 mg/dL (74-106); POTASSIUM 3.7 mmol/L (3.5-5.1); SODIUM SERUM 142 mmol/L (136-145); UREA NITROGEN, BLOOD 17 mg/dL (7-18)
[2018-06-11 19:04] LABS: B-TYPE NATRIURETIC PEPTIDE < 5 PG/ML (0-125)
[2018-06-11 19:26] LABS: D-DIMER 0.32 mg/L(FEU (0.17-0.50)
--- NOTE | 2018-06-11 19:30 | NUR ---
PATIENT IN NAD, DENIES PAIN AT THIS TIME, ENDORSED TO CARLA MYRICK.
[2018-06-11] MEDS ORDERED: CT SWABBABLE VALVE TRANS SET 1 EA INFUS.SET MC ONE (20:55)
[2018-06-11] MEDS ORDERED: IOHEXOL-350 100 ML VIAL IV ONE (20:55)
[2018-06-11] MEDS ORDERED: IV NS 0.9% 250 ML IV ONE (20:55)
[2018-06-11] MEDS ORDERED: IV NS 0.9% 1,000 ML IV PRN (22:05)
[2018-06-11] MEDS ORDERED: MAGNESIUM HYDROXIDE 30 ML UDC PO PRN (22:30)
[2018-06-11] MEDS ORDERED: HYDROCODONE/APAP 5/325MG 1 EACH TABLET PO PRN (22:30)
[2018-06-11] MEDS ORDERED: Z GUARD REMEDY 2 OZ OINT TP PRN (22:30)
[2018-06-11] MEDS ORDERED: ACETAMINOPHEN 325 MG TABLET PO PRN (22:30)
[2018-06-11] MEDS ORDERED: MAG HYDROX/AL HYDROX/SIMETH 30 ML UDC PO PRN (22:30)
[2018-06-11] MEDS ORDERED: ZOLPIDEM TARTRATE 5 MG TABLET PO PRN (22:30)
[2018-06-11] MEDS ORDERED: ONDANSETRON HCL/PF 4 MG/2 ML VIAL IVP PRN (22:30)
--- NOTE | 2018-06-11 22:51 | NUR ---
REPORT GIVEN TO SHRAVAN MYRICK FOR CONTINUATION OF CARE.
--- NOTE | 2018-06-11 23:15 | NUR ---
RN NOTES: -AT 2248 - RECEIVED ENDORSEMENT FROM CARLA/ER/RN REGARDING PATIENT ADMISSION, TELE FOR OBSERVATION OF TACHYCARDIA, A/OX4, LAB AND TROPONIN WITHIN NORMAL RANGE,CT PULMONARY ANGIOGRAM AND VENOUS DOPPLER(BLE) ARE ALL NEGATIVE,FOR OBSERVATION,NO MEDICATION FROM HOME. -AT 2312 - PATIENT WAS ADMITTED [place] [facility], ACCOMPANIED BY 2 STAFF FROM ER, ON SALESPERSON MEN'S AND BOYS' CLOTHING,FOR TELE MONITORING AI=102, ON ROOM AIR SPO2-100%, A/OX3-4,OBESE, NO SIGN OF SOB OR RESPIRATORY DISTRESS NOTED,NO PAIN OR DISCOMFORT, SHE JUST VERBALIZED "MY HEART IS BEATING SO FAST", PATIENT IS A BIT WITHDRAWN, EXPLAINED TO HER ABOUT BODY ASSESSMENT, SHE JUST AGREED TO CHECK HER BUE AND BACK, OTHER AREAS SHE REFUSED: NOTED ABRASION(DRY, HEALING) ON THE RIGHT UPPER BACK, MID BACK AND LEFT UPPER BACK; SHE REFUSED HER OTHER BODY PARTS TO BE CHECK;UNABLE TO GET HISTORY VERY WELL SHE ANSWER LIMITED AND SHE LOOKS TIRED AND SHE SAID "I WANT TO REST AND SLEEP I DONT WANT ANYTHING, ANY MEDICATION OR WHATEVER,IM HERE FOR OBSERVATION ONLY", SHE AGREED FOR THE SALESPERSON MEN'S AND BOYS' CLOTHING.ORIENTED TO UNIT AND STAFF,BELONGINGS CHECKED,FALL,SAFETY, SEIZURE AND ASPIRATION PRECAUTION OBSERVED,BED LOW AND LOCKED, CALL LIGHT WAS WITHIN EASY REACH.
--- NOTE | 2018-06-11 23:20 | NUR ---
RN NOTES: FLU VACCINE OFFERED SHE STRONGLY REFUSED SHE SAID "I DONT BELIEVED IN VACCINE, I DONT NEED IT, IM ONLY HEAR FOR OBSERVATION".
[2018-06-11 23:23] VITALS: BP 138/87
[2018-06-11 23:30] VITALS: BP 138/87
--- NOTE | 2018-06-12 01:22 | NUR ---
RN NOTES: KEEP ON CLOSE WATCH, NO COMPLAINTS, SHE IS ASLEEP.
--- NOTE | 2018-06-12 01:50 | NUR ---
RN NOTES: PATIENT SAID SHE HAS IMPLANTED HORMONAL CONTROL ON THE LEFT ARM.
--- NOTE | 2018-06-12 02:37 | NUR ---
RN NOTES: MISA(DOMESTIC HOUSEKEEPER) CAME TO RE-ASSESS PATIENT BUT SHE WAS A BIT RESISTANT AND NOT COOPERATIVE, DOMESTIC HOUSEKEEPER MADE AWARE PATIENT REFUSE FOR MEDICATION AND IV FLUIDS,WILL CONTINUE TO MONITOR, RHYTHM IS SINUS TACHY - RATE:110.
[2018-06-12 04:00] VITALS: BP 106/56
--- NOTE | 2018-06-12 05:16 | NUR ---
RN NOTES: ASLEEP IN THE NIGHT, SNORING, KEPT IN SEMI FOWLERS POSITION, CALL LIGHT WAS WITHIN EASY REACH.
--- NOTE | 2018-06-12 06:43 | NUR ---
RN NOTES: STILL ASLEEP, NO COMPLAINTS OF DISCOMFORT, ON DIRECT MARKETING MANAGER AA=[phone], KEEP ON CLOSE WATCH, FALL,SAFETY AND ASPIRATION PRECAUTION OBSERVED,ENDORSED FOR CONTINUITY OF CARE.
[2018-06-12 06:46] LABS: BASOPHILS % (AUTO) 0.4 % (0.0-2.0); EOSINOPHILS % (AUTO) 1.3 % (0.0-6.0); HEMATOCRIT 33 % (33-45); HEMOGLOBIN 10.4 g/dL (11.5-14.8); LYMPHOCYTES # (AUTO) 1.6 /CMM (0.8-4.8); LYMPHOCYTES % (AUTO) 22.9 % (20.0-44.0); MEAN CORPUSCULAR HGB CONC 32 g/dl (31.0-36.0); MEAN CORPUSCULAR VOLUME 75 fL (82-100); MONOCYTES # (AUTO) 0.5 /CMM (0.1-1.30); MONOCYTES % (AUTO) 6.4 % (2.0-12.0); NEUTROPHILS # (AUTO) 4.9 /CMM (1.8-8.9); PLATELET COUNT (AUTO) 315 /CMM (150-450); RED BLOOD CELL COUNT(AUTO) 4.37 MIL/uL (4.0-5.2); WHITE BLOOD COUNT (AUTO) 7.1 K/uL (4.3-11.0)
[2018-06-12 07:05] LABS: THYROID STIMULATING HORMONE 1.275 uIU/mL (0.358-3.74)
[2018-06-12 07:09] LABS: POTASSIUM 3.9 mmol/L (3.5-5.1)
[2018-06-12 07:10] LABS: CALCIUM, SERUM 8.5 mg/dL (8.5-10.1); CREATININE 0.6 mg/dL (0.6-1.3); MAGNESIUM 1.8 mg/dL (1.8-2.4)
--- NOTE | 2018-06-12 07:20 | NUR ---
RN NOTES PATIENT ASLEEP, RESPONSIVE TO VERBAL STIMULI, BREATHING EVEN AND UNLABORED, DENIES PAIN OR DISCOMFORT NOTED, KEPT COMFORTABLE, NEEDS ATTENDED, CALL LIGHT WITHIN REACH, WILL CONTINUE TO MONITOR.
[2018-06-12 08:00] VITALS: BP 114/59
[2018-06-12] MEDS ORDERED: CLINDAMYCIN HCL 150 MG CAPSULE PO SCH (09:00)
--- NOTE | 2018-06-12 10:20 | NUR ---
FILM LIBRARIAN OPENING NOTES RECEIVED PATIENT IN STABLE CONDITION. IN NO APPARENT DISTRESS. BEDSIDE RAILS ARE UPX2. BED IS LOCKED AND LOWERED. CALL LIGHT IS WITHIN REACH. IV LINE IS INTACT AND PATENT. WILL CONTINUE TO MONITOR PATIENT.
--- NOTE | 2018-06-12 15:15 | NUR ---
MS NEON SIGN WORKER NOTES PATIENT DISCHARGED IN STABLE CONDITION. IN NO APPARENT DISTRESS. IV LINE WAS REMOVED. ID BAND WAS REMOVED. EXITCARE WAS SIGNED AND PROVIDED TO THE PATIENT. ALL NEEDS WERE MET. PATIENT WAS ESCORTED OUT OF THE FACILITY BYDeng SANTO.
== END 2018-06-12 15:15 | disposition home or self-care (01) | DRG 115 ==
LOC: ER 17:31 → TELE 22:52 → MED 06-12 09:21
PROVIDERS: ADMIT Registered Nurse; ATTEND Nurse Practitioner Acute Care
DX: G47.33 Obstructive sleep apnea (adult) (pediatric) (principal); E43 Unspecified severe protein-calorie malnutrition; E66.01 Morbid (severe) obesity due to excess calories; N39.0 Urinary tract infection, site not specified; I10 Essential (primary) hypertension; F41.9 Anxiety disorder, unspecified; Z91.19 Patient's noncompliance with other medical treatment and regimen; R45.1 Restlessness and agitation; Z68.44 Body mass index [BMI] 60.0-69.9, adult
CPT/HCPCS: 36415; 71045-TC; 80048-TC; 80061-TC; 80305; 81000-TC; 83540-TC; 83735-TC; 83880; 84100-TC; 84443-TC; 84484-TC; 84702-TC; 84703-TC; 85025-TC; 85378-TC; 85730-TC; 87081-TC; 93970-TC; A4606; G0378; J7040; J7050; Q9967; Z7610

== ENCOUNTER 2018-08-27 08:00 | Emergency (ER) | payer MEDICAID ==
[~2018-08-27] VITALS: Ht 170.2 cm; Wt 181.0 kg
[2018-08-27 08:00] VITALS: BP 152/77
--- NOTE | 2018-08-27 08:25 | NUR ---
SEEN AND EXAMINED BY DR. BARKSDALE.
--- NOTE | 2018-08-27 08:30 | NUR ---
PT SIGNED WAIVER.
--- NOTE | 2018-08-27 08:56 | NUR ---
PT IS TAKEN TO RADIOLOGY DEPT FOR XRAY.
== END 2018-08-27 10:46 | disposition home or self-care (01) ==
LOC: ER 08:04
DX: J06.9 Acute upper respiratory infection, unspecified (principal); E66.01 Morbid (severe) obesity due to excess calories; Z68.44 Body mass index [BMI] 60.0-69.9, adult; Z98.890 Other specified postprocedural states; Z60.2 Problems related to living alone
CPT/HCPCS: 71046; 82962-TC

== ENCOUNTER 2018-11-05 01:59 | Emergency (ER) | payer MEDICAID ==
[~2018-11-05] VITALS: Ht 170.2 cm; Wt 192.8 kg
[2018-11-05 02:15] VITALS: BP 165/106
[2018-11-05 02:45] LABS: BILIRUBIN,URINE NEGATIVE (NEGATIVE); BLOOD, URINE NEGATIVE Ery/uL (NEGATIVE); COLOR,URINE YELLOW (YELLOW); KETONES,URINE NEGATIVE (NEGATIVE); LEUKOCYTE ESTERASE ,URINE NEGATIVE (NEGATIVE); NITRITE, URINE NEGATIVE (NEGATIVE); PROTEIN,URINE NEGATIVE (NEGATIVE); UGLUCOSE NEGATIVE (NEGATIVE)
[2018-11-05 02:48] LABS: APPEARANCE,URINE SLIGHTLY HAZY (CLEAR)
[2018-11-05 02:49] LABS: BACTERIA,URINE None seen /HPF (None Seen); RBC,URINE 0-2 /HPF (0-2); SQUAMOUS EPITHELIAL CELL,UR Moderate /HPF (None Seen); WBC,URINE 0-2 /HPF (0-3)
== END 2018-11-05 03:50 | disposition home or self-care (01) ==
LOC: ER 02:02
DX: M54.5 Low back pain (principal); I10 Essential (primary) hypertension; F41.9 Anxiety disorder, unspecified; E66.9 Obesity, unspecified; Z98.890 Other specified postprocedural states; Z60.2 Problems related to living alone
CPT/HCPCS: 81000-TC; 84703-TC

== ENCOUNTER 2018-12-01 10:35 | Emergency (ER) | payer MEDICAID ==
[~2018-12-01] VITALS: Ht 172.7 cm; Wt 196.0 kg
[2018-12-01 10:35] VITALS: BP 142/76
== END 2018-12-01 12:00 | disposition home or self-care (01) ==
LOC: ER 10:39
DX: M25.561 Pain in right knee (principal); E66.9 Obesity, unspecified; Z98.890 Other specified postprocedural states; Z60.2 Problems related to living alone
CPT/HCPCS: 73560-TC

== ENCOUNTER 2020-02-02 04:33 | Emergency (ER) | payer MEDICAID ==
[~2020-02-02] VITALS: Ht 170.2 cm; Wt 206.4 kg
--- NOTE | 2020-02-02 04:49 | NUR ---
BIBS FOR C/O COUGH X A MONTH. DENIED SOB. SATTING 100% ON R/A. AFEBRILE . CLEAR LUNG SOUNDS BILATERALLY. PT REPORTED HAS NOT REC'D ANY MEDICATIONS RAIL CAR LOADER. PT WAS PLACED ON A MONITOR.
--- NOTE | 2020-02-02 06:01 | NUR ---
covid swab collected and sent to lab
--- NOTE | 2020-02-02 06:56 | NUR ---
Pt is medically stable for d/c. Patient discharged to home in stable condition. Rx and Written and verbal after care instructions given. Patient verbalizes understanding of instruction.
[2020-02-02 06:58] VITALS: BP 163/89
== END 2020-02-02 06:58 | disposition home or self-care (01) ==
LOC: ER 04:47
DX: J40 Bronchitis, not specified as acute or chronic (principal); I10 Essential (primary) hypertension; E66.01 Morbid (severe) obesity due to excess calories; Z68.45 Body mass index [BMI] 70 or greater, adult; Z82.5 Family history of asthma and other chronic lower respiratory diseases
CPT/HCPCS: 71045-TC

== ENCOUNTER 2020-03-18 09:58 | Emergency (ER) | payer MEDICAID ==
[~2020-03-18] VITALS: Ht 170.2 cm; Wt 206.4 kg
[2020-03-18 10:07] VITALS: BP 143/82
[2020-03-18 10:22] LABS: APPEARANCE,URINE Clear (CLEAR); BILIRUBIN,URINE Negative (NEGATIVE); BLOOD, URINE Trace-intact Ery/uL (NEGATIVE); COLOR,URINE Yellow (YELLOW); KETONES,URINE Negative (NEGATIVE); LEUKOCYTE ESTERASE ,URINE Negative (NEGATIVE); NITRITE, URINE Negative (NEGATIVE); PROTEIN,URINE 30 mg/dl (NEGATIVE); UGLUCOSE Negative (NEGATIVE)
[2020-03-18 10:36] LABS: BACTERIA,URINE Moderate /HPF (None Seen); SQUAMOUS EPITHELIAL CELL,UR Few /HPF (None Seen)
--- NOTE | 2020-03-18 11:04 | NUR ---
Patient discharged to home in stable condition. Written and verbal after care instructions given. Patient verbalizes understanding of instruction.
== END 2020-03-18 11:05 | disposition home or self-care (01) ==
LOC: ER 10:05
DX: N39.0 Urinary tract infection, site not specified (principal); I10 Essential (primary) hypertension; Z98.890 Other specified postprocedural states
CPT/HCPCS: 81000-TC; 84703-TC; 87086-TC; 87186-TC

== ENCOUNTER 2020-04-01 06:03 | Emergency (ER) | payer MEDICAID ==
[~2020-04-01] VITALS: Ht 170.2 cm; Wt 206.4 kg
[2020-04-01] MEDS ORDERED: IV NS 0.9% 1,000 ML BAG IV ONE (07:00)
[2020-04-01] MEDS ORDERED: ONDANSETRON HCL/PF 4 MG/2 ML VIAL IVP ONE (07:00)
[2020-04-01] MEDS ORDERED: KETOROLAC TROMETHAMINE INJ 30 MG/ML VIAL IV ONE (07:00)
[2020-04-01] MEDS ORDERED: KETOROLAC TROMETHAMINE 15 MG/ML VIAL ONE (07:04)
[2020-04-01] MEDS ORDERED: ONDANSETRON HCL/PF 4 MG/2 ML VIAL ONE (07:04)
[2020-04-01 07:19] LABS: APPEARANCE,URINE CLEAR (CLEAR); BILIRUBIN,URINE NEGATIVE (NEGATIVE); BLOOD, URINE NEGATIVE Ery/uL (NEGATIVE); COLOR,URINE YELLOW (YELLOW); KETONES,URINE NEGATIVE (NEGATIVE); LEUKOCYTE ESTERASE ,URINE NEGATIVE (NEGATIVE); NITRITE, URINE NEGATIVE (NEGATIVE); PH,URINE 6.5 (5.0-8.0); PROTEIN,URINE NEGATIVE (NEGATIVE); UGLUCOSE NEGATIVE (NEGATIVE); UROBILINOGEN,URINE 0.2 EU/dL (0.2)
--- NOTE | 2020-04-01 07:25 | NUR ---
PATIENT CAME TO ER BED 3 C/O "I HAVE CLEAR URINE, AND I SAW ON GOOGLE THAT WHEN YOU HAVE CLEAR URINE, I HAVE A KIDNEY INFECTION." PATIENT IS AAOX4. NO SOB. BREATHING EVENLY AND UNLABORED ON ROOM AIR. CONNECTED TO THE MONITOR.
--- NOTE | 2020-04-01 07:33 | NUR ---
patient refused IV fluids and IV medications. notified.
[2020-04-01 07:35] LABS: BASOPHILS # (AUTO) 0.1 /CMM (0.0-0.2); BASOPHILS % (AUTO) 0.6 % (0.0-2.0); EOSINOPHILS % (AUTO) 1.3 % (0.0-6.0); HEMATOCRIT 41 % (33-45); HEMOGLOBIN 12.8 g/dL (11.5-14.8); LYMPHOCYTES # (AUTO) 2.1 /CMM (0.8-4.8); LYMPHOCYTES % (AUTO) 22.7 % (20.0-44.0); MEAN CORPUSCULAR HGB CONC 32 g/dl (31.0-36.0); MEAN CORPUSCULAR VOLUME 78 fL (82-100); MONOCYTES # (AUTO) 0.4 /CMM (0.1-1.30); MONOCYTES % (AUTO) 4.3 % (2.0-12.0); NEUTROPHILS # (AUTO) 6.5 /CMM (1.8-8.9); NEUTROPHILS % (AUTO) 71.1 % (43.0-81.0); PLATELET COUNT (AUTO) 354 /CMM (150-450); RED BLOOD CELL COUNT(AUTO) 5.22 MIL/uL (4.0-5.2); WHITE BLOOD COUNT (AUTO) 9.1 K/uL (4.3-11.0)
--- NOTE | 2020-04-01 08:16 | NUR ---
Patient discharged to home in stable condition. Written and verbal after care instructions given. Patient verbalizes understanding of instruction. IV removed. Catheter intact and site benign. Pressure and 4x4 applied to site. No bleeding noted.
[2020-04-01 08:27] VITALS: BP 148/98
[2020-04-01 09:19] LABS: CALCIUM, SERUM 9.4 mg/dL (8.5-10.1); CREATININE 0.6 mg/dL (0.6-1.3); POTASSIUM 4.3 mmol/L (3.5-5.1)
== END 2020-04-01 08:28 | disposition home or self-care (01) ==
LOC: ER 06:06
DX: Z00.8 Encounter for other general examination (principal); I10 Essential (primary) hypertension; Z98.890 Other specified postprocedural states
CPT/HCPCS: 36415; 80048-TC; 81000-TC; 84703-TC; 85025-TC; 87086-TC; J1885; J2405; J7030

== ENCOUNTER 2020-08-12 10:24 | Emergency (ER) | payer MEDICAID ==
[~2020-08-12] VITALS: Ht 170.2 cm; Wt 209.6 kg
[~2020-08-12 10:24] MED LIST changes: -CLIN300C11 PO; +CLIN300C12 PO
[2020-08-12] MEDS ORDERED: IV NS 0.9% 500 ML BAG IV ONE (11:00)
[2020-08-12 11:38] LABS: BASOPHILS # (AUTO) 0.1 /CMM (0.0-0.2); BASOPHILS % (AUTO) 0.7 % (0.0-2.0); EOSINOPHILS % (AUTO) 1.2 % (0.0-6.0); HEMATOCRIT 34 % (33-45); HEMOGLOBIN 10.6 g/dL (11.5-14.8); LYMPHOCYTES # (AUTO) 2.1 /CMM (0.8-4.8); LYMPHOCYTES % (AUTO) 21.5 % (20.0-44.0); MEAN CORPUSCULAR HGB CONC 32 g/dl (31.0-36.0); MEAN CORPUSCULAR VOLUME 76 fL (82-100); MONOCYTES # (AUTO) 0.4 /CMM (0.1-1.30); MONOCYTES % (AUTO) 4.7 % (2.0-12.0); NEUTROPHILS # (AUTO) 6.9 /CMM (1.8-8.9); NEUTROPHILS % (AUTO) 71.9 % (43.0-81.0); PLATELET COUNT (AUTO) 391 /CMM (150-450); WHITE BLOOD COUNT (AUTO) 9.6 K/uL (4.3-11.0)
[2020-08-12 11:47] LABS: CALCIUM, SERUM 9.3 mg/dL (8.5-10.1); CREATININE 0.7 mg/dL (0.6-1.3); POTASSIUM 3.6 mmol/L (3.5-5.1)
[2020-08-12] MEDS ORDERED: NORG1TAB86 PO (12:19)
[2020-08-12 12:42] VITALS: BP 135/89
--- NOTE | 2020-08-12 12:43 | NUR ---
Patient discharged to home in stable condition. Written and verbal after care instructions given. Patient verbalizes understanding of instruction. No vaginal active bleeding noted
== END 2020-08-12 12:43 | disposition home or self-care (01) ==
LOC: ER 10:29
DX: N93.9 Abnormal uterine and vaginal bleeding, unspecified (principal); I10 Essential (primary) hypertension; Z98.890 Other specified postprocedural states; Z79.899 Other long term (current) drug therapy
CPT/HCPCS: 36415; 80048-TC; 84703-TC; 85025-TC; 85730-TC; 86850-TC

== ENCOUNTER 2020-11-22 12:34 | Emergency (ER) | payer MEDICAID ==
[~2020-11-22] VITALS: Ht 170.2 cm; Wt 200.0 kg
[~2020-11-22 12:34] MED LIST changes: +NORG1TAB86 PO
--- NOTE | 2020-11-22 12:34 | NUR ---
PT BIB SELF C/O RUQ ABDOMINAL PAIN X 10 DAYS. CONSTIPATED X 3 DAYS. PT IS AAOX4, NOT IN RESPIRATORY DISTRESS, V/S STABLE, KEPT RESTED AND COMFORTABLE. WILL CONTINUE TO MONITOR.
--- NOTE | 2020-11-22 13:05 | NUR ---
SEEN AND EXAMINED BY .
--- NOTE | 2020-11-22 13:10 | NUR ---
URINE SPECIMEN COLLECTED AND SENT TO LAB.
[2020-11-22 13:37] LABS: BASOPHILS # (AUTO) 0.1 /CMM (0.0-0.2); BASOPHILS % (AUTO) 0.5 % (0.0-2.0); EOSINOPHILS % (AUTO) 0.1 % (0.0-6.0); HEMATOCRIT 37 % (33-45); HEMOGLOBIN 11.6 g/dL (11.5-14.8); LYMPHOCYTES % (AUTO) 15.3 % (20.0-44.0); MEAN CORPUSCULAR HGB CONC 32 g/dl (31.0-36.0); MEAN CORPUSCULAR VOLUME 74 fL (82-100); MONOCYTES # (AUTO) 0.6 /CMM (0.1-1.30); MONOCYTES % (AUTO) 4.4 % (2.0-12.0); NEUTROPHILS # (AUTO) 10.3 /CMM (1.8-8.9); NEUTROPHILS % (AUTO) 79.7 % (43.0-81.0); PLATELET COUNT (AUTO) 466 /CMM (150-450); RED BLOOD CELL COUNT(AUTO) 4.99 MIL/uL (4.0-5.2); WHITE BLOOD COUNT (AUTO) 12.9 K/uL (4.3-11.0)
--- NOTE | 2020-11-22 13:41 | NUR ---
CRITICAL SYSTEMS TECHNICIAN AT BEDSIDE FOR ULTRASOUND.
[2020-11-22 13:49] LABS: BILIRUBIN,URINE SMALL (NEGATIVE); COLOR,URINE YELLOW (YELLOW); LEUKOCYTE ESTERASE ,URINE Negative (NEGATIVE); NITRITE, URINE Negative (NEGATIVE); PH,URINE 6.5 (5.0-8.0); PROTEIN,URINE 30 mg/dl (NEGATIVE); UGLUCOSE Negative (NEGATIVE); UROBILINOGEN,URINE 0.2 EU/dL (0.2)
[2020-11-22 13:50] LABS: RBC,URINE 0-2 /HPF (0-2); WBC,URINE 0-2 /HPF (0-3)
[2020-11-22 13:51] LABS: BACTERIA,URINE Few /HPF (None Seen); SQUAMOUS EPITHELIAL CELL,UR Few /HPF (None Seen)
[2020-11-22 13:54] LABS: ALBUMIN 3.2 g/dL (3.4-5.0); BILIRUBIN,DIRECT 0.1 mg/dL (0.0-0.2); BILIRUBIN,TOTAL 0.5 mg/dL (0.2-1.0); CALCIUM, SERUM 9.5 mg/dL (8.5-10.1); CREATININE 0.7 mg/dL (0.6-1.3); TOTAL PROTEIN, SERUM 8.5 g/dL (6.4-8.2)
[2020-11-22 13:57] LABS: POTASSIUM 2.7 mmol/L (3.5-5.1)
[2020-11-22] MEDS ORDERED: KETOROLAC TROMETHAMINE INJ 30 MG/ML VIAL ONE (13:58)
[2020-11-22] MEDS ORDERED: POTASSIUM CHLORIDE 20 MEQ TAB.PRT.SR PO ONE ×2 (13:58→14:00)
[2020-11-22] MEDS ORDERED: MAG HYDROX/AL HYDROX/SIMETH 30 ML UDC PO ONE (14:00)
[2020-11-22] MEDS ORDERED: IV NS 0.9% 1,000 ML IV ONE (14:00)
[2020-11-22] MEDS ORDERED: KETOROLAC TROMETHAMINE INJ 30 MG/ML VIAL IM ONE (14:00)
[2020-11-22] MEDS ORDERED: MAG HYDROX/AL HYDROX/SIMETH 30 ML UDC ONE (14:02)
[2020-11-22 14:27] VITALS: BP 137/62
[2020-11-22] MEDS ORDERED: POTA-58 PO (18:21)
== END 2020-11-22 14:27 | disposition home or self-care (01) ==
LOC: ER 12:36
DX: R10.11 Right upper quadrant pain (principal); E87.6 Hypokalemia; I10 Essential (primary) hypertension; Z98.890 Other specified postprocedural states
CPT/HCPCS: 36415; 76705-TC; 80048-TC; 80076-TC; 81001; 83690-TC; 84703-TC; 85025-TC; J1885

== ENCOUNTER 2020-11-22 17:52 | Emergency (ER) | payer MEDICAID ==
[~2020-11-22] VITALS: Ht 170.2 cm; Wt 200.0 kg
[2020-11-22 18:10] VITALS: BP 151/94
[2020-11-22] MEDS ORDERED: POTA-58 PO (18:21)
== END 2020-11-22 18:45 | disposition home or self-care (01) ==
LOC: ER 17:54
DX: E87.6 Hypokalemia (principal); E66.01 Morbid (severe) obesity due to excess calories; Z68.44 Body mass index [BMI] 60.0-69.9, adult

== ENCOUNTER 2020-12-18 16:55 | Emergency (ER) | payer MEDICAID ==
[~2020-12-18] VITALS: Ht 170.2 cm; Wt 221.4 kg
[~2020-12-18 16:55] MED LIST changes: +POTA-58 PO
--- NOTE | 2020-12-18 17:10 | NUR ---
C/O PALPITATION, DRY MOUTH, SOB X1 DAY, BP MEDS CHANGED LAST WEEK BY PCP IS NOW TAKING ATENOLOL 25MG DAILY. PATIENT A/OX4, ASSISTED TO BED, APPEARS TO BE ANXIOUS. BREATHING EVEN AND UNLABORED, NO SOB NOTED. NEEDS ATTENDED.
[2020-12-18] MEDS ORDERED: ATEN25TA PO (17:11)
[2020-12-18] MEDS ORDERED: NORG1TAB11 PO (17:11)
--- NOTE | 2020-12-18 17:16 | NUR ---
OFE WATERS AT BEDSIDE FOR EVAL.
[2020-12-18 17:48] LABS: BASOPHILS # (AUTO) 0.1 /CMM (0.0-0.2); BASOPHILS % (AUTO) 0.8 % (0.0-2.0); HEMATOCRIT 32 % (33-45); HEMOGLOBIN 9.8 g/dL (11.5-14.8); LYMPHOCYTES # (AUTO) 2.7 /CMM (0.8-4.8); LYMPHOCYTES % (AUTO) 24.3 % (20.0-44.0); MEAN CORPUSCULAR HGB CONC 31 g/dl (31.0-36.0); MEAN CORPUSCULAR VOLUME 74 fL (82-100); MONOCYTES # (AUTO) 0.4 /CMM (0.1-1.30); MONOCYTES % (AUTO) 3.6 % (2.0-12.0); NEUTROPHILS # (AUTO) 7.9 /CMM (1.8-8.9); NEUTROPHILS % (AUTO) 70.3 % (43.0-81.0); PLATELET COUNT (AUTO) 394 /CMM (150-450); WHITE BLOOD COUNT (AUTO) 11.3 K/uL (4.3-11.0)
[2020-12-18 18:15] LABS: ALANINE AMINOTRANSFERASE 13 U/L (12-78); ALBUMIN 2.5 g/dL (3.4-5.0); ALKALINE PHOSPHATASE 102 U/L (46-116); ASPARTATE AMINOTRANSFERASE 11 U/L (15-37); CALCIUM, SERUM 8.4 mg/dL (8.5-10.1); CARBON DIOXIDE 27 mmol/L (21-32); CHLORIDE 102 mmol/L (98-107); CREATININE 0.7 mg/dL (0.6-1.3); GLUCOSE 113 mg/dL (74-106); POTASSIUM 3.5 mmol/L (3.5-5.1); SODIUM SERUM 138 mmol/L (136-145); TOTAL PROTEIN, SERUM 6.9 g/dL (6.4-8.2); UREA NITROGEN, BLOOD 14 mg/dL (7-18)
--- NOTE | 2020-12-18 18:50 | NUR ---
CT DOES NOT MEET THE WEIGHT REQUIREMENT FOR CT MACHINE.
[2020-12-18] MEDS ORDERED: IV NS 0.9% 1,000 ML BAG IV ONE (19:30)
[2020-12-18 20:23] VITALS: BP 118/97
--- NOTE | 2020-12-18 20:23 | NUR ---
IV removed. Catheter intact and site benign. Pressure and 4x4 applied to site. No bleeding noted.Patient discharged to home in stable condition. Written and verbal after care instructions given. Patient verbalizes understanding of instruction.
[2020-12-18 21:03] LABS: LYMPHOCYTES % (MANUAL) 27 % (16-48); MONOCYTES % (MANUAL) 3 % (0-11.0); NEUTROPHILS % (MANUAL) 70 (42-76)
== END 2020-12-18 20:24 | disposition home or self-care (01) ==
LOC: ER 16:55
DX: R00.2 Palpitations (principal); D64.9 Anemia, unspecified; E66.01 Morbid (severe) obesity due to excess calories; I10 Essential (primary) hypertension; R00.0 Tachycardia, unspecified; Z68.45 Body mass index [BMI] 70 or greater, adult; Z98.890 Other specified postprocedural states; Z79.899 Other long term (current) drug therapy
CPT/HCPCS: 36415; 71045; 80048; 80076; 83880; 84484; 84702; 85007; 85025; 85378; 93005 ×2; 96360; 99285; J7030

== ENCOUNTER 2020-12-25 04:49 | Emergency (ER) | payer MEDICAID ==
[~2020-12-25] VITALS: Ht 170.2 cm; Wt 190.5 kg
[~2020-12-25 04:49] MED LIST changes: +ATEN25TA PO; -CLIN300C12 PO; +NORG1TAB11 PO; -NORG1TAB86 PO; -POTA-58 PO
--- NOTE | 2020-12-25 05:01 | NUR ---
PT AAOX4. BIBSELF C/O BILATERAL FLANK PAIN AND HAVING URGENCY TO URINATE SINCE YESTERDAY. PLACED IN BED 10 ON MONITOR AND PULSE OX. AWAITING ER MD FOR EVAL AND ORDERS.
--- NOTE | 2020-12-25 05:18 | NUR ---
URINE COLLECTED, SENT TO LAB.
--- NOTE | 2020-12-25 06:04 | NUR ---
SPOKE TO LAB REGARDING URINE, WILL RUN IT.
[2020-12-25 06:07] LABS: BILIRUBIN,URINE Negative (NEGATIVE); COLOR,URINE YELLOW (YELLOW); LEUKOCYTE ESTERASE ,URINE Trace (NEGATIVE); NITRITE, URINE Negative (NEGATIVE); PH,URINE 5.5 (5.0-8.0); PROTEIN,URINE Negative (NEGATIVE); UGLUCOSE Negative (NEGATIVE); UROBILINOGEN,URINE 0.2 EU/dL (0.2)
[2020-12-25] MEDS ORDERED: IV NS 0.9% 1,000 ML IV ONE (06:30)
[2020-12-25] MEDS ORDERED: KETOROLAC TROMETHAMINE INJ 30 MG/ML VIAL IV ONE (06:30)
[2020-12-25] MEDS ORDERED: KETOROLAC TROMETHAMINE 15 MG/ML VIAL ONE (06:35)
[2020-12-25 06:46] LABS: BACTERIA,URINE None seen /HPF (None Seen); RBC,URINE 0-2 /HPF (0-2); WBC,URINE NONE SEEN /HPF (0-3)
[2020-12-25 06:48] LABS: BASOPHILS # (AUTO) 0.1 K/uL (0.0-0.2); BASOPHILS % (AUTO) 0.7 % (0.0-2.0); EOSINOPHILS % (AUTO) 0.4 % (0.0-6.0); HEMATOCRIT 38 % (33-45); HEMOGLOBIN 11.9 g/dL (11.5-14.8); LYMPHOCYTES # (AUTO) 1.6 K/uL (0.8-4.8); MEAN CORPUSCULAR HGB CONC 31 g/dl (31.0-36.0); MEAN CORPUSCULAR VOLUME 74 fL (82-100); MONOCYTES # (AUTO) 0.5 K/uL (0.1-1.30); MONOCYTES % (AUTO) 4.4 % (2.0-12.0); NEUTROPHILS # (AUTO) 9.1 K/uL (1.8-8.9); NEUTROPHILS % (AUTO) 80.5 % (43.0-81.0); PLATELET COUNT (AUTO) 479 K/uL (150-450); RED BLOOD CELL COUNT(AUTO) 5.13 MIL/uL (4.0-5.2); WHITE BLOOD COUNT (AUTO) 11.3 K/uL (4.3-11.0)
[2020-12-25 06:55] LABS: CALCIUM, SERUM 9.6 mg/dL (8.5-10.1); CREATININE 0.8 mg/dL (0.6-1.3)
[2020-12-25] MEDS ORDERED: PHEN-704 PO (07:53)
[2020-12-25] MEDS ORDERED: IBUP-1955 PO (07:53)
[2020-12-25 08:31] VITALS: BP 116/68
== END 2020-12-25 08:32 | disposition home or self-care (01) ==
LOC: ER 04:53
DX: R30.0 Dysuria (principal); R10.9 Unspecified abdominal pain; I10 Essential (primary) hypertension; D64.9 Anemia, unspecified; Z98.890 Other specified postprocedural states; Z79.899 Other long term (current) drug therapy
CPT/HCPCS: 36415; 80048; 81001; 82962; 84703; 85025; 87086; 96361; 96374; 99283; J1885; J7030

== ENCOUNTER 2021-11-16 13:07 | Emergency (ER) | payer MEDICAID ==
[~2021-11-16] VITALS: Ht 170.2 cm; Wt 208.7 kg
[~2021-11-16 13:07] MED LIST changes: +IBUP-1955 PO; +PHEN-704 PO
--- NOTE | 2021-11-16 13:25 | NUR ---
AT BEDSIDE FOR EVAL.
--- NOTE | 2021-11-16 13:49 | NUR ---
URINE SPECIMEN COLLECTED AND SENT TO LAB.
[2021-11-16 14:07] LABS: BILIRUBIN,URINE SMALL (NEGATIVE); COLOR,URINE ORANGE (YELLOW); LEUKOCYTE ESTERASE ,URINE NEGATIVE (NEGATIVE); NITRITE, URINE NEGATIVE (NEGATIVE); PROTEIN,URINE 30 mg/dl (NEGATIVE); UGLUCOSE NEGATIVE (NEGATIVE); UROBILINOGEN,URINE 0.2 EU/dL (0.2)
[2021-11-16 14:13] LABS: BACTERIA,URINE 4+ /HPF (None Seen); RBC,URINE TOO NUMEROUS TO COUN /HPF (0-2); SQUAMOUS EPITHELIAL CELL,UR 21-50 /HPF (None Seen); WBC,URINE TOO NUMEROUS TO COUN /HPF (0-3)
--- NOTE | 2021-11-16 14:35 | NUR ---
ER PHLEB AT BEDSIDE FOR BLOOD DRAW
[2021-11-16 15:37] LABS: BASOPHILS # (AUTO) 0.1 K/uL (0.0-0.2); BASOPHILS % (AUTO) 0.6 % (0.0-2.0); EOSINOPHILS % (AUTO) 0.3 % (0.0-6.0); HEMATOCRIT 39 % (33-45); HEMOGLOBIN 12.7 g/dL (11.5-14.8); LYMPHOCYTES # (AUTO) 2.1 K/uL (0.8-4.8); LYMPHOCYTES % (AUTO) 17.3 % (20.0-44.0); MEAN CORPUSCULAR HGB CONC 32 g/dl (31.0-36.0); MEAN CORPUSCULAR VOLUME 79 fL (82-100); MONOCYTES # (AUTO) 0.5 K/uL (0.1-1.30); NEUTROPHILS # (AUTO) 9.7 K/uL (1.8-8.9); NEUTROPHILS % (AUTO) 77.8 % (43.0-81.0); PLATELET COUNT (AUTO) 342 K/uL (150-450); RED BLOOD CELL COUNT(AUTO) 4.99 MIL/uL (4.0-5.2); WHITE BLOOD COUNT (AUTO) 12.4 K/uL (4.3-11.0)
[2021-11-16 15:49] LABS: CALCIUM, SERUM 9.5 mg/dL (8.5-10.1); CREATININE 0.8 mg/dL (0.6-1.3)
[2021-11-16 15:55] LABS: BILIRUBIN,DIRECT 0.1 mg/dL (0.0-0.2); BILIRUBIN,TOTAL 0.3 mg/dL (0.2-1.0); TOTAL PROTEIN, SERUM 7.8 g/dL (6.4-8.2)
[2021-11-16] MEDS ORDERED: CEPH500C2 PO (16:18)
--- NOTE | 2021-11-16 16:27 | NUR ---
Patient discharged to home in stable condition. Written and verbal after care instructions given. Patient verbalizes understanding of instruction.
[2021-11-16 16:29] VITALS: BP 142/68
== END 2021-11-16 16:30 | disposition home or self-care (01) ==
LOC: ER 13:12
DX: R10.11 Right upper quadrant pain (principal); N39.0 Urinary tract infection, site not specified; I10 Essential (primary) hypertension; Z79.899 Other long term (current) drug therapy
CPT/HCPCS: 36415; 76705-TC; 80048-TC; 80076-TC; 81001; 83690-TC; 84703-TC; 85025-TC; 87086-TC

== ENCOUNTER 2021-11-28 09:24 | Emergency (ER) | payer MEDICAID ==
[~2021-11-28] VITALS: Ht 170.2 cm; Wt 208.7 kg
[~2021-11-28 09:24] MED LIST changes: +CEPH500C2 PO
[2021-11-28 09:31] VITALS: BP 149/91
--- NOTE | 2021-11-28 09:31 | NUR ---
TO ER BED 19, BIB SELF C/O CLOUDY URINE OUTPUT STARTED YESTERDAY, AAOX3, BREATHING EVEN AND NON LABORED, AWAITING MD ORDERS
--- NOTE | 2021-11-28 09:36 | NUR ---
URINE SPEICMEN COLLECTED AND SENT TO LAB.
[2021-11-28 10:08] LABS: BILIRUBIN,URINE NEGATIVE (NEGATIVE); COLOR,URINE DARK YELLOW (YELLOW); LEUKOCYTE ESTERASE ,URINE NEGATIVE (NEGATIVE); NITRITE, URINE NEGATIVE (NEGATIVE); PROTEIN,URINE 30 mg/dl (NEGATIVE); UGLUCOSE NEGATIVE (NEGATIVE); UROBILINOGEN,URINE 0.2 EU/dL (0.2)
[2021-11-28 11:32] LABS: BACTERIA,URINE Few /HPF (None Seen); MUCUS,URINE Moderate /LPF (None Seen); SQUAMOUS EPITHELIAL CELL,UR Few /HPF (None Seen)
[2021-11-28] MEDS ORDERED: CIPR-262 PO (11:55)
--- NOTE | 2021-11-28 12:05 | NUR ---
Patient discharged to home in stable condition. Written and verbal after care instructions given. Patient verbalizes understanding of instruction.
== END 2021-11-28 12:05 | disposition home or self-care (01) ==
LOC: ER 09:29
DX: N39.0 Urinary tract infection, site not specified (principal); I10 Essential (primary) hypertension; Z60.2 Problems related to living alone; Z79.899 Other long term (current) drug therapy
CPT/HCPCS: 81001; 84703-TC; 87086-TC; 87491; 87591

== ENCOUNTER 2021-12-17 06:28 | Emergency (ER) | payer MEDICAID ==
[~2021-12-17] VITALS: Ht 170.2 cm; Wt 208.7 kg
[~2021-12-17 06:28] MED LIST changes: +CIPR-262 PO
--- NOTE | 2021-12-17 06:50 | NUR ---
PRESENTED TO THE ER FOR C/O VAGINLA BLEEDING X 1 MONTH. STATED DOES NOT HAVE A MAKING MACHINE CATCHER DOCTOR. DENIED ANY PAIN OR DISCOMFORT. AMBULATORY TO THE BATHROOM W/ STEADY GAITS. URINE SAMPLE OBTAINED AND PLACED PT IN BED 16 ER. VSS . WILL CONT TO MONITOR
--- NOTE | 2021-12-17 06:51 | NUR ---
DR. MADIE MACHUCA AT PT'S BEDSIDE
--- NOTE | 2021-12-17 07:12 | NUR ---
URINE SAMPLE SENT TO LAB
[2021-12-17 07:27] LABS: BASOPHILS # (AUTO) 0.1 K/uL (0.0-0.2); BASOPHILS % (AUTO) 0.5 % (0.0-2.0); EOSINOPHILS % (AUTO) 0.8 % (0.0-6.0); HEMATOCRIT 39 % (33-45); HEMOGLOBIN 12.6 g/dL (11.5-14.8); LYMPHOCYTES # (AUTO) 1.9 K/uL (0.8-4.8); LYMPHOCYTES % (AUTO) 17.4 % (20.0-44.0); MEAN CORPUSCULAR HGB CONC 32 g/dl (31.0-36.0); MEAN CORPUSCULAR VOLUME 79 fL (82-100); MONOCYTES # (AUTO) 0.5 K/uL (0.1-1.30); MONOCYTES % (AUTO) 4.5 % (2.0-12.0); NEUTROPHILS # (AUTO) 8.2 K/uL (1.8-8.9); NEUTROPHILS % (AUTO) 76.8 % (43.0-81.0); PLATELET COUNT (AUTO) 351 K/uL (150-450); RED BLOOD CELL COUNT(AUTO) 4.96 MIL/uL (4.0-5.2); WHITE BLOOD COUNT (AUTO) 10.6 K/uL (4.3-11.0)
[2021-12-17 07:57] LABS: CALCIUM, SERUM 8.8 mg/dL (8.5-10.1); CREATININE 0.8 mg/dL (0.6-1.3); POTASSIUM 4.2 mmol/L (3.5-5.1)
[2021-12-17 08:05] LABS: BILIRUBIN,URINE NEGATIVE (NEGATIVE); COLOR,URINE YELLOW (YELLOW); LEUKOCYTE ESTERASE ,URINE NEGATIVE (NEGATIVE); NITRITE, URINE NEGATIVE (NEGATIVE); PROTEIN,URINE 30 mg/dl (NEGATIVE); UGLUCOSE NEGATIVE (NEGATIVE); UROBILINOGEN,URINE 0.2 EU/dL (0.2)
[2021-12-17 08:09] LABS: BILIRUBIN,DIRECT 0.1 mg/dL (0.0-0.2); BILIRUBIN,TOTAL 0.3 mg/dL (0.2-1.0); TOTAL PROTEIN, SERUM 8.2 g/dL (6.4-8.2)
[2021-12-17 08:29] LABS: BACTERIA,URINE Rare /HPF (None Seen); SQUAMOUS EPITHELIAL CELL,UR Rare /HPF (None Seen)
--- NOTE | 2021-12-17 08:54 | NUR ---
PAGED DR. MURILLO AWAITNG A CALL BACK
[2021-12-17 10:03] VITALS: BP 133/78
--- NOTE | 2021-12-17 10:03 | NUR ---
Patient discharged to home in stable condition. Written and verbal after care instructions given. Patient verbalizes understanding of instruction.
== END 2021-12-17 10:04 | disposition home or self-care (01) ==
LOC: ER 06:30
DX: N93.9 Abnormal uterine and vaginal bleeding, unspecified (principal); I10 Essential (primary) hypertension; Z60.2 Problems related to living alone; Z79.899 Other long term (current) drug therapy
CPT/HCPCS: 36415; 76856-TC; 80048-TC; 80076-TC; 81001; 84703-TC; 85025-TC; 85730-TC

== ENCOUNTER 2022-02-01 19:11 | Emergency (ER) | payer MEDICAID, OTHER ==
[~2022-02-01] VITALS: Ht 170.2 cm; Wt 208.7 kg
--- NOTE | 2022-02-01 19:35 | NUR ---
BIBS C/O NON RADIATING CHEST PAIN SINCE YESTERDAY. PER PATIENT PAIN SCALE OF 4/10. PLACED COMFORTABLY IN BED. ATTACHED TO MONITOR. VITALS CHECKED.
[2022-02-01] MEDS ORDERED: LIDOCAINE VISCOUS 2% UD 15 ML UDC ONE (19:59)
[2022-02-01] MEDS ORDERED: MAG HYDROX/AL HYDROX/SIMETH 30 ML UDC ONE (19:59)
[2022-02-01] MEDS ORDERED: LIDOCAINE VISCOUS 2% UD 15 ML UDC MM ONE (20:00)
[2022-02-01] MEDS ORDERED: MAG HYDROX/AL HYDROX/SIMETH 30 ML UDC PO ONE (20:00)
--- NOTE | 2022-02-01 20:00 | NUR ---
WING COMMANDER AT BEDSIDE
[2022-02-01 20:30] LABS: BASOPHILS % (AUTO) 0.3 % (0.0-2.0); EOSINOPHILS % (AUTO) 0.7 % (0.0-6.0); HEMATOCRIT 39 % (33-45); HEMOGLOBIN 12.3 g/dL (11.5-14.8); LYMPHOCYTES # (AUTO) 3.1 K/uL (0.8-4.8); LYMPHOCYTES % (AUTO) 23.8 % (20.0-44.0); MEAN CORPUSCULAR HGB CONC 32 g/dl (31.0-36.0); MEAN CORPUSCULAR VOLUME 80 fL (82-100); MONOCYTES # (AUTO) 0.7 K/uL (0.1-1.30); MONOCYTES % (AUTO) 5.1 % (2.0-12.0); NEUTROPHILS # (AUTO) 9.1 K/uL (1.8-8.9); NEUTROPHILS % (AUTO) 70.1 % (43.0-81.0); PLATELET COUNT (AUTO) 373 K/uL (150-450); RED BLOOD CELL COUNT(AUTO) 4.82 MIL/uL (4.0-5.2); WHITE BLOOD COUNT (AUTO) 12.9 K/uL (4.3-11.0)
[2022-02-01 20:51] LABS: CALCIUM, SERUM 9.2 mg/dL (8.5-10.1); CARBON DIOXIDE 28 mmol/L (21-32); CHLORIDE 98 mmol/L (98-107); CREATININE 0.7 mg/dL (0.6-1.3); GLUCOSE 110 mg/dL (74-106); POTASSIUM 3.5 mmol/L (3.5-5.1); SODIUM SERUM 133 mmol/L (136-145); UREA NITROGEN, BLOOD 11 mg/dL (7-18)
[2022-02-01 20:57] LABS: ALANINE AMINOTRANSFERASE 21 U/L (12-78); ALKALINE PHOSPHATASE 86 U/L (46-116); ASPARTATE AMINOTRANSFERASE 16 U/L (15-37); BILIRUBIN,DIRECT 0.1 mg/dL (0.0-0.2); BILIRUBIN,TOTAL 0.4 mg/dL (0.2-1.0)
--- NOTE | 2022-02-01 23:38 | NUR ---
Patient discharged to home in stable condition. Written and verbal after care instructions given. Patient verbalizes understanding of instruction.
[2022-02-01 23:40] VITALS: BP 139/92
[2022-02-02 22:16] LABS: LIPASE 44 U/L (73-393)
== END 2022-02-01 23:24 | disposition home or self-care (01) ==
LOC: ER 19:12
DX: K21.9 Gastro-esophageal reflux disease without esophagitis (principal); R07.89 Other chest pain; I10 Essential (primary) hypertension; E66.01 Morbid (severe) obesity due to excess calories; Z68.45 Body mass index [BMI] 70 or greater, adult; D64.9 Anemia, unspecified; Z60.2 Problems related to living alone; Z98.890 Other specified postprocedural states; Z79.899 Other long term (current) drug therapy
CPT/HCPCS: 36415; 71045-TC; 80048-TC; 80076-TC; 83690-TC; 84484-TC; 85025-TC

== ENCOUNTER 2022-04-06 02:55 | Emergency (ER) | payer MEDICAID, OTHER ==
[~2022-04-06] VITALS: Ht 170.2 cm; Wt 208.7 kg
--- NOTE | 2022-04-06 03:50 | NUR ---
ZEINABSECHAD C/O PAIN ON URINATION X 1 DAY. PATIENT IS AAOX4. ABLE TO MAKE NEEDS KNOWN.
[2022-04-06 04:29] LABS: BILIRUBIN,URINE NEGATIVE (NEGATIVE); COLOR,URINE YELLOW (YELLOW); LEUKOCYTE ESTERASE ,URINE NEGATIVE (NEGATIVE); NITRITE, URINE NEGATIVE (NEGATIVE); PROTEIN,URINE TRACE mg/dl (NEGATIVE); UGLUCOSE NEGATIVE (NEGATIVE); UROBILINOGEN,URINE 0.2 EU/dL (0.2)
[2022-04-06 04:32] LABS: BACTERIA,URINE Rare /HPF (None Seen); SQUAMOUS EPITHELIAL CELL,UR Few /HPF (None Seen)
[2022-04-06] MEDS ORDERED: FLUCONAZOLE (100 MG) 100 MG TABLET ONE (04:58)
[2022-04-06] MEDS ORDERED: FLUCONAZOLE (100 MG) 100 MG TABLET PO ONE (05:00)
--- NOTE | 2022-04-06 05:10 | NUR ---
Patient discharged to home in stable condition. Written and verbal after care instructions given. Patient verbalizes understanding of instruction.
[2022-04-06 05:11] VITALS: BP 134/70
== END 2022-04-06 05:12 | disposition home or self-care (01) ==
LOC: ER 02:59
DX: R30.0 Dysuria (principal); I10 Essential (primary) hypertension; Z60.2 Problems related to living alone; Z79.899 Other long term (current) drug therapy
CPT/HCPCS: 81001; 84703-TC